=== PATIENT | female | born 1955 | race Caucasian/White ===

== ENCOUNTER 2020-01-11 00:21 | Emergency (ER) | payer MEDICAID, SELFPAY ==
[2020-01-11 00:33] VITALS: BMI 48.4
--- NOTE | 2020-01-11 00:33 | PC.NURSE ---
notified rad of CT orders
--- NOTE | 2020-01-11 00:34 | CT_ITS ---
PROCEDURE: CT FACIAL BONES WO CON CLINICAL HISTORY: FALL Posttraumatic pain and swelling, right periorbital hematoma COMPARISON: No exams were available for comparison TECHNIQUE: Axial images obtained with sagittal and coronal reformats. All CT scans at the facility use one or more dose reduction, viz: automated exposure control, ma/kV adjustment per patient size (including targeted exams where dose is matched to indication, i.e. head), or iterative reconstruction technique. FINDINGS: No acute fracture or dislocation. There is prominent soft tissue swelling in the right infraorbital region and along the right zygoma. There is a small amount of soft tissue gas in the right nasal area. The right globe has an unremarkable appearance. No sinus air-fluid level. Scattered small nodes are present in the neck. IMPRESSION: Right periorbital hematoma with a small amount of soft tissue gas along the right nasal region suggesting laceration. No acute fracture Dictated by: Kain Garcia MD 01/11/2020 09:09 Electronically signed by Kain Garcia MD in [facility] 01/11/2020 09:09
--- NOTE | 2020-01-11 00:34 | XR_ITS ---
PROCEDURE: XR PELVIS 1-2V CLINICAL INDICATION: FALL Posttraumatic pain COMPARISON: No exams were available for comparison TECHNIQUE: XR Pelvis AP View FINDINGS: No fracture or dislocation is evident. No significant degenerative change. No lytic or blastic change. IMPRESSION: No acute findings. Dictated by: Kain Garcia MD 01/11/2020 07:55 Electronically signed by Kain Garcia MD in [facility] 01/11/2020 07:55
--- NOTE | 2020-01-11 00:34 | CT_ITS ---
PROCEDURE: CT HEAD/BRAIN WO CON CLINICAL INDICATION: FALL Head injury with headache/pain, contusion, abrasion or hematoma Loss of consciousness COMPARISON: [facility] CT HEAD WITHOUT CONTRAST from 12/15/2012 TECHNIQUE: Axial images obtained. All CT scans at the facility use one or more dose reduction, viz: automated exposure control, ma/kV adjustment per patient size (including targeted exams where dose is matched to indication, i.e. head), or iterative reconstruction technique. FINDINGS: No midline shift, mass effect, intracranial hemorrhage, hydrocephalus, or extra-axial fluid collection is evident. The calvarium has an unremarkable appearance. No mastoid effusion. There is prominent soft tissue swelling in the right infraorbital and periorbital region. No acute fracture. No sinus air-fluid level IMPRESSION: Right periorbital hematoma No acute intracranial findings Dictated by: Kain Garcia MD 01/11/2020 08:00 Electronically signed by Kain Garcia MD in [facility] 01/11/2020 08:00
--- NOTE | 2020-01-11 00:34 | CT_ITS ---
PROCEDURE: CT CERVICAL SPINE WO CON CLINICAL INDICATION: FALL Neck injury with pain, contusion/abrasion or hematoma, cervical sprain/strain COMPARISON: [facility] CT CERVICAL SPINE W/O CONT from 12/15/2012 TECHNIQUE: Axial images obtained with sagittal and coronal reformats. All CT scans at the facility use one or more dose reduction, viz: automated exposure control, ma/kV adjustment per patient size (including targeted exams where dose is matched to indication, i.e. head), or iterative reconstruction technique. Axial spiral CT scanning performed of the cervical spine beginning at the base of the skull and continuing to the upper T-spine. 3-D multiplanar reconstruction with 3-D manipulation of volumetric data set in image rendering was completed by the radiologist and/or technologist with the supervision of the radiologist on independent workstation. FINDINGS: There is straightening of the cervical lordosis. This could be due to patient positioning or muscle spasm. No acute fracture or dislocation. There is multilevel cervical spondylosis. C2-C3: Mild right-sided facet hypertrophic change. Mild right foraminal narrowing. C3-C4: Degenerative disc disease with endplate osteophytes. There is a left paracentral osteophyte extending posteriorly along the C3 vertebral body causing left lateral recess narrowing. C4-C5: Degenerate disc disease with endplate hypertrophy and a broad-based disc osteophyte complex with canal stenosis, bilateral lateral recess narrowing, and foraminal narrowing greater on the left. Ossification extends along the left paracentral aspect of the C4 vertebral body causing left lateral recess narrowing. C5-C6: Degenerative disc disease with endplate hypertrophic change with canal stenosis. Left paracentral disc osteophyte complex with severe left lateral recess and foraminal narrowing. Bridging osteophyte extends in the left paracentral region at C6 inferiorly C6-C7: Degenerate disc disease with narrowing of the canal and bulging disc with endplate hypertrophic change. Lung apices are clear C6-C7: IMPRESSION: No acute fracture. Multilevel cervical spondylosis with canal stenosis and lateral recess and foraminal narrowing. Please see above for detailed description at each level. There is ossification/bridging osteophyte posteriorly along the left paracentral region extending from C2-C3 to C6-C7 with resultant lateral recess and foraminal narrowing with associated canal stenosis. Overall no significant change Dictated by: Kain Garcia MD 01/11/2020 09:15 Electronically signed by Kain Garcia MD in [place] 01/11/2020 09:15
--- NOTE | 2020-01-11 00:34 | XR_ITS ---
PROCEDURE: XR CHEST AP CLINICAL HISTORY: FALL Posttraumatic pain, trauma protocol COMPARISON: XR PELVIS 1-2V from 01/11/2020 FINDINGS: The cardiomediastinal silhouette and pulmonary vascularity are within normal limits. Right hemidiaphragm is elevated. Lungs are clear. No acute bony abnormalities. IMPRESSION: No acute findings. Dictated by: Kain Garcia MD 01/11/2020 07:57 Electronically signed by Kain Garcia MD in [facility] 01/11/2020 07:57
[2020-01-11 00:37] VITALS: BP 148/82; PULSE 71; RESP 17; TEMP 36.6; O2SAT 98; BMI 45.6
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
[2020-01-11 02:12] VITALS: BP 140/72; PULSE 67; RESP 17; TEMP 36.8; O2SAT 98
== END 2020-01-11 02:21 | disposition home or self-care (01) ==
PROVIDERS: Emergency Provider Family Medicine; PCP Nurse Practitioner Family
DX: R55 Syncope and collapse (principal); S01.111A Laceration without foreign body of right eyelid and periocular area, initial encounter; W18.39XA Other fall on same level, initial encounter; Y92.019 Unspecified place in single-family (private) house as the place of occurrence of the external cause; I10 Essential (primary) hypertension; J44.9 Chronic obstructive pulmonary disease, unspecified; E78.5 Hyperlipidemia, unspecified; F41.8 Other specified anxiety disorders; K21.9 Gastro-esophageal reflux disease without esophagitis; E11.9 Type 2 diabetes mellitus without complications; E66.01 Morbid (severe) obesity due to excess calories; Z68.42 Body mass index [BMI] 45.0-49.9, adult; Z87.891 Personal history of nicotine dependence
CPT/HCPCS: 12011; 70450; 70486; 71045; 72125; 72170; 99282

== ENCOUNTER → 2020-10-28 09:31 | Outpatient (CLI) | payer OTHER, SELFPAY ==
--- NOTE | 2020-10-28 09:37 | MM_ITS ---
PROCEDURE: MM DIG SCREENING MAMM BI W/CAD Digital Breast Tomosynthesis Included CLINICAL INDICATION: SCREENING There is a history of breast cancer patient's maternal aunt and maternal cousin. COMPARISON: MG DMSB DIG MAMM-SCREEN RACHEL from 07/27/2014 MG DMSB DIG MAMM-SCREEN RACHEL from 09/28/2015 MG DMSB DIG MAMM-SCREEN RACHEL W/CAD from 06/25/2017 TECHNIQUE: Standard CC and MLO images and 3D Tomosynthesis was obtained. R2 CAD reviewed. FINDINGS: The breasts are composed primarily of fat with moderate scattered fibroglandular densities throughout each breast. There are few benign-appearing microcalcifications right breast. There is a stable nodular density upper-outer quadrant left breast likely an intramammary node. There is no suspicious lesion and there is no suspicious microcalcifications. IMPRESSION: Fibrofatty parenchyma with no suspicious lesions seen BI-RAD Category: 2 Benign Finding(s) FOLLOW-UP: 1YR 1 Year Follow-up (A letter has been sent to the patient regarding results of the study.) Dictated by: Dr. Lawrence Vann MD 11/07/2020 11:11 Dr. Lawrence Vann MD in [place] 11/07/2020 11:11
--- NOTE | 2020-10-28 09:37 | XR_ITS ---
PROCEDURE: XR KNEE RT 2V CLINICAL INDICATION: PAIN IN RT KNEE COMPARISON: No exams were available for comparison FINDINGS: No fracture or dislocation. No lytic or blastic change. There is normal mineralization. Mild to moderate osteoarthritic changes are present at the medial compartment with moderate to severe osteoarthritic change at the patellofemoral joint Other findings:None. IMPRESSION: Osteoarthritis Dictated by: Kain Garcia MD 10/28/2020 17:12 Kain Garcia MD in [facility] 10/28/2020 17:12
== END ==
PROVIDERS: PCP Nurse Practitioner Family; Visit Provider Nurse Practitioner Family
DX: Z12.31 Encounter for screening mammogram for malignant neoplasm of breast (principal); M25.561 Pain in right knee
CPT/HCPCS: 73560; 77063; 77067

== ENCOUNTER → 2022-01-05 09:48 | Outpatient (CLI) | payer OTHER, SELFPAY ==
--- NOTE | 2022-01-05 09:52 | MM_ITS ---
PROCEDURE INFORMATION: Exam: MG Bilateral Screening 3D Mammography Exam date and time: 01/05/2022 9:55 AM Age: 66 years old Clinical indication: Screening mammogram TECHNIQUE: Imaging protocol: Bilateral Screening tomosynthesis and 2D mammography including computer-aided detection (CAD) when performed. COMPARISON: 1. MG MM DIG SCREENING MAMM BI W/CAD 10/28/2020 9:35 AM 2. MG DMSB DIG MAMM-SCREEN RACHEL W/CAD 06/25/2017 11:12 AM 3. MG DMSB DIG MAMM-SCREEN RACHEL 09/28/2015 10:14 AM 4. MG DMSB DIG MAMM-SCREEN RACHEL 07/27/2014 9:47 AM FINDINGS: MAMMOGRAPHY: Breast composition: There are scattered areas of fibroglandular density. Mass: None. Architectural distortion: No new or suspicious architectural distortion. Calcifications: No new or suspicious calcifications are present Asymmetric density: No new or suspicious asymmetric density is present Skin thickening: None. Axillary adenopathy: None. IMPRESSION: No mammographic evidence of malignancy. Recommend annual screening mammography unless otherwise clinically indicated. ASSESSMENT: BI-RADS category 1: Negative
== END ==
PROVIDERS: PCP Nurse Practitioner Family; Visit Provider Nurse Practitioner Family
DX: Z12.31 Encounter for screening mammogram for malignant neoplasm of breast (principal)
CPT/HCPCS: 77063; 77067